=== PATIENT | female | born 1955 | race Caucasian/White ===

== ENCOUNTER 2016-02-28 10:24 | Emergency (ER) | payer BC ==
[2016-02-28] MEDS ORDERED: SODIUM CHLORIDE 0.9% 1,000 ML ONE (12:16)
[2016-02-28] MEDS ORDERED: METHYLPRED SOD SUCC 125 MG/2 ML VIAL ONE (12:16)
[2016-02-28] MEDS ORDERED: DIPHENHYDRAMINE 50 MG/ML VIAL ONE (12:16)
== END 2016-02-28 14:09 | disposition home or self-care (01) ==
LOC: ER 10:24
DX: L50.0 Allergic urticaria (principal); T50.995A Adverse effect of other drugs, medicaments and biological substances, initial encounter; Z79.899 Other long term (current) drug therapy; M06.9 Rheumatoid arthritis, unspecified; Z85.3 Personal history of malignant neoplasm of breast; Z85.850 Personal history of malignant neoplasm of thyroid
CPT/HCPCS: 36415; 80053; 83690; 85025; 96361; 96374; 96375